=== PATIENT | female | born 1965 ===

== ENCOUNTER 2024-01-23 13:26 | Emergency (ER) | payer OTHER, SELFPAY ==
--- NOTE | ~2024-01-23 | XR_ITS ---
EXAMINATION: XR LEFT KNEE XR RIGHT KNEE CLINICAL INFORMATION: Bilateral knee pain. COMPARISON: None available. TECHNIQUE: AP, lateral and bilateral oblique views of each knee were obtained. FINDINGS: Normal alignment of the left knee. Mild medial tibiofemoral cartilage space loss with marginal osteophytes. There is slight asymmetric prominence of the musculature within the posterior compartment of the left knee. No displaced fracture. No significant joint effusion. Normal alignment of the right knee. Mild medial tibiofemoral cartilage space loss with marginal osteophytes. No displaced fracture. No significant joint effusion. XR/XR knee LT 3V IMPRESSION: Asymmetric prominence of the musculature within the posterior compartment of the left knee. Advise clinical correlation.
--- NOTE | ~2024-01-23 | XR_ITS ---
EXAMINATION: XR LEFT KNEE XR RIGHT KNEE CLINICAL INFORMATION: Bilateral knee pain. COMPARISON: None available. TECHNIQUE: AP, lateral and bilateral oblique views of each knee were obtained. FINDINGS: Normal alignment of the left knee. Mild medial tibiofemoral cartilage space loss with marginal osteophytes. There is slight asymmetric prominence of the musculature within the posterior compartment of the left knee. No displaced fracture. No significant joint effusion. Normal alignment of the right knee. Mild medial tibiofemoral cartilage space loss with marginal osteophytes. No displaced fracture. No significant joint effusion. XR/XR knee RT 3V IMPRESSION: Asymmetric prominence of the musculature within the posterior compartment of the left knee. Advise clinical correlation.
--- NOTE | 2024-01-23 13:55 | ED_ITS ---
HPI - Extremity Injury (Lower) General Chief Complaint: Extremity Injury, Lower Stated Complaint: Body pain Time Seen by Provider: 01/23/24 15:27 Source: patient Mode of arrival: ambulatory Limitations: no limitations History of Present Illness HPI Narrative: 58-year-old female history of arthritis of both knees presents to ED for bilateral knee pain since last night while doing heavy lifting. Patient states he is clicking sounds in both knees. Patient denies any blunt trauma, dizziness, calf pain, leg swelling, chest pain, or shortness of breath. Related Data Previous Rx's ?Medication ?Instructions ?Recorded naproxen 500 mg tablet 500 mg PO BID PRN pain 7 days #14 01/23/24 tabs prednisone 20 mg tablet 40 mg (2 x 20 mg) PO DAILY 5 days 01/23/24 #10 tabs Allergies Allergy/AdvReac Type Severity Reaction Status Date / Time No Known Allergies Allergy Verified 01/23/24 13:58 Review of Systems 2 Review of Systems: Bilateral knee pain Yes all other systems are reviewed and are negative [facility] Social History Social History Advance Directives: No Advance Directives Information Provided: No Physical Exam 2 Vital Signs: Vital Signs: Last Vital Signs Temp 0 F L 01/23/24 17:11 Pulse 0 L 01/23/24 17:11 Resp 16 01/23/24 17:11 BP 00/00 L 01/23/24 17:11 Pulse Ox 99 01/23/24 15:56 O2 Del Method Room Air 01/23/24 15:56 BMI result Body Mass Index 28.2 Const: General: cooperative, healthy appearing, comfortable, no acute distress, well developed, alert, awake and Physically active O rientation/consciousness: oriented to person, oriented to place, oriented to time and patient oriented x3 HEENT: Head: Yes normal to inspection, Yes No palpable skull fracture present, Yes normocephalic and Yes atraumatic Eyes: General: appearance normal, both eyes and all related structures Neck: Neck: Yes normal visual inspection, Yes full ROM, Yes no lymphadenopathy, Yes no meningeal signs, Yes trachea midline, Yes supple, No anterior neck swelling and No tender Chest: Chest palpation & inspection: normal inspection of the chest and normal palpation of entire chest wall Resp: Effort & Inspection: normal respiratory effort and able to speak in complete sentences Auscultation: clear to auscultation bilaterally Cardio: Jugular venous distension: no JVD Heart sounds: S1 normal heart sound present and S2 normal heart sound present GI: Inspection: Yes normal to inspection Palpation (GI): Soft to palpation, not firm, nontender, no guarding and not rigid : General: Yes no CVA tenderness Back/Spine/Pelvis: Back: no CVA tenderness and No back tenderness Skin: General skin exam: no rashes or lesions noted, elasticity normal and turgor normal Neuro: General: oriented to person, oriented to place, oriented to time, patient oriented x3, gait normal, tone normal, moves all extremities, Normal light touch and pain sensation, no meningeal signs, no focal motor deficits, CN's II-XI intact bilaterally and normal sensation to monofilament Extrem: General: Yes normal to inspection and Yes full ROM Upper/lower leg/hip images: 1. positive for tendenress on palpation. negative for redness, stifenss, warmth, coldness, hotness, ecchymosis, or deformities. Rest of exam is normal. motor, neuro, and vascular exam is intact. 2. positive for tendenress on palpation. negative for redness, stifenss, warmth, coldness, hotness, ecchymosis, or deformities. Rest of exam is normal. motor, neuro, and vascular exam is intact. Course Course Course Narrative: This is a Rapid Medical Examination (RME) performed by Keara Hendricks PA-C in triage. Full HPI, ROS, assessment and treatment plan per primary provider in the Main ED. 58 yo female with history of HTN, DM, osteoarthritis presents w06/21 bilateral knee pain for the last 3 days. 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 Unable to sleep due the pain. Took gabapentin with no relief. Recently moved here from [place] so has no orthopedic or provider in the area. Plan: knee x-rays Medical Decision Making Medical Decision Making [facility] Narrative: 58-year-old female presents to ED for bilateral knee pain without any trauma. Patient has history of osteoarthritis. Patient states prednisone usually help with symptoms. X-ray shows osteoarthritis. No fracture. Patient explained worrisome signs informed to return to Differential Diagnosis Differential Diagnoses: The differential diagnosis associated with the presentation includes ( arthritis, fracture, dislocation) Admission/Observation Consideration of admission/observation: Escalation of care including admission/observation considered Lab Data MDM Lab Attestation statement: I reviewed the patient's lab results. Independent Interpretation I performed an independent interpretation of an: Plain X-Ray Radiology Impression Discussion of test interpretation with radiology: I have reviewed the radiologist's reading. Independent Historian Clinical information obtained from an independent historian. History obtained from or confirmed by: Other ( patient) External Record Review External record reviewed: Other ( prior visits) Prescription Management I considered prescription management with: Pain Medication Discharge Plan Discharge Clinical Impression: Osteoarthritis Patient Disposition: Home, Self-Care Instructions: Osteoarthritis (ED) Additional Instructions: recommend follow-up with primary care provider. Return to the ED immediately for swelling, redness, bluish black discoloration, calf pain, stiffness, fever, chills, hotness, coldness, or any other concerning symptoms. FINDINGS: Normal alignment of the left knee. Mild medial tibiofemoral cartilage space loss with marginal osteophytes. There is slight asymmetric prominence of the musculature within the posterior compartment of the left knee. No displaced fracture. No significant joint effusion. Normal alignment of the right knee. Mild medial tibiofemoral cartilage space loss with marginal osteophytes. No displaced fracture. No significant joint effusion. XR/XR knee LT 3V IMPRESSION: Asymmetric prominence of the musculature within the posterior compartment of the left knee. Advise clinical correlation. Prescriptions: New prednisone 20 mg tablet 40 mg PO DAILY 5 Days Qty: 10 0RF naproxen 500 mg tablet 500 mg PO BID PRN (Reason: pain) 7 Days Qty: 14 0RF Stand Alone Forms: Work/School Release Interventions: ED Discharge Assessment Last Done: 01/23/24 17:11 Discharge Date/Time: 01/23/24 17:11 Print Language: Indonesian
[2024-01-23 13:56] VITALS: BP 148/72; PULSE 77; RESP 19; TEMP 36.6; O2SAT 98; BMI 28.2
[2024-01-23 15:56] VITALS: BP 142/70; PULSE 66; RESP 16; TEMP 36.9; O2SAT 99
[2024-01-23 17:11] VITALS: BP 00/00; PULSE 0; RESP 16; TEMP -17.7; TEMP 0
== END 2024-01-23 17:11 | disposition home or self-care (01) ==
PROVIDERS: Emergency Provider Student in an Organized Health Care Education/Training Program; PCP Internal Medicine
DX: M17.0 Bilateral primary osteoarthritis of knee (principal); M25.562 Pain in left knee; M25.561 Pain in right knee
CPT/HCPCS: 73562; 99283

== ENCOUNTER 2024-02-24 02:52 | Emergency (ER) | payer OTHER, SELFPAY ==
--- NOTE | 2024-02-24 | ECG_ITS ---
Test Reason : CHEST PAIN Blood Pressure : / mmHG Vent. Rate : 080 BPM Atrial Rate : 080 BPM P-R Int : 124 ms QRS Dur : 096 ms QT Int : 362 ms P-R-T Axes : 000 -12 137 degrees QTc Int : 417 ms Normal sinus rhythm Lateral infarct , age undetermined Abnormal ECG No previous ECGs available Referred By: Generic ED Physician Electronically Signed By:ELY JOE
--- NOTE | ~2024-02-24 | CT_ITS ---
EXAMINATION: CT ABDOMEN AND PELVIS WITHOUT CONTRAST CLINICAL INFORMATION: Abdominal pain. COMPARISON: None available. TECHNIQUE: Multidetector volumetric imaging was performed from the superior aspect of the liver through the pubic symphysis. Sagittal and coronal reformatted images were obtained on the technologist's workstation. This CT examination was performed using dose optimization techniques as appropriate, variously including the following: *Automated exposure control *Adjustment of mA and/or kV according to patient size (this includes techniques or standardized protocols for targeted exams where dose is matched to indication/reason for exam; i.e. extremities or head) *Use of iterative reconstruction technique DLP: 620 mGy-cm FINDINGS: LUNG BASES: Small hiatal hernia. LIVER, GALLBLADDER, AND BILIARY TREE: The noncontrast liver is normal in size and contour. No biliary ductal dilatation is present. The gallbladder is unremarkable with no evidence of radiopaque gallstones, gallbladder wall thickening, or obvious pericholecystic inflammatory changes. PANCREAS: Unremarkable. SPLEEN: Unremarkable. ADRENAL GLANDS: Unremarkable. KIDNEYS AND URETERS: The kidneys are normal in size, shape, and attenuation. No hydronephrosis or renal calculi. No perinephric stranding. BLADDER: Unremarkable. GASTROINTESTINAL TRACT: Small and large bowel loops are of normal caliber. No small bowel obstruction. Appendix is within normal limits. ABDOMINAL WALL: Small fat-containing left inguinal hernia. Small fat-containing umbilical hernia. LYMPH NODES: No bulky lymphadenopathy. VASCULAR: Normal caliber abdominal aorta. PELVIC VISCERA: Unremarkable. OSSEOUS STRUCTURES: No destructive bone lesions. CT/CT abdomen pelvis wo IV con IMPRESSION: No nephrolithiasis or hydronephrosis.
[2024-02-24 02:55] VITALS: BP 168/77; PULSE 85; RESP 20; TEMP 36.6; O2SAT 98; BMI 28.2
[2024-02-24 03:18] LABS: Basophils Percent Auto 0.4 % (0-2); Eosinophils Absolute Auto 0.1 X10*3/uL (0.0-0.4); Eosinophils Percent Auto 1.9 % (0-4); Hematocrit 39.4 % (37.0-47.0); Hemoglobin 13.4 g/dl (12.0-16.0); Imm Gran Abs Auto 0.01 X10*3/uL (0.00-0.03); Imm Gran Pct Auto 0.2 % (0.0-0.4); Lymphocytes Absolute Auto 1.3 X10*3/uL (1.2-4.9); Lymphocytes Percent Auto 24.9 % (20-40); MANUAL DIFF FLAG NO; Mean Corpuscular Hemoglobin 30.7 pg (27.0-33.0); Mean Corpuscular Volume 90.4 fL (80.0-98.0); Mean Platelet Volume 9.3 fL (9.4-12.3); Monocytes Absolute Auto 0.4 X10*3/uL (0.1-1.2); Monocytes Percent Auto 7.1 % (2-11); Neutrophils Absolute Auto 3.5 x10*3/uL (2.0-8.3); Neutrophils Percent Auto 65.5 % (45-73); Platelet Count 214 X10*3/uL (160-400); Red Blood Count 4.36 X10*6/uL (4.20-5.50); Red Cell Distribution Width 13.8 % (11.0-16.0); White Blood Count 5.4 X10*3/uL (4.8-10.8)
[2024-02-24 03:20] LABS: Appearance Urine Cloudy; Color Urine Orange; Glucose Urine UA Negative (Negative); Leukocyte Esterase Urine Moderate (2+) (Negative); Nitrite Urine Negative (Negative); PH 7.5 (5.0-9.0); UMIC TRIGGER UACC YES; Urine Blood Large (3+) (Negative); Urine Ketones Negative (Negative); Urine Protein 100 (2+) mg/dL (Neg-Trace)
[2024-02-24 03:22] LABS: Bacteria Urine 1+ (None Seen); Hyaline Casts Urine 0-2 /LPF (0-2); RBC Urine >20 /HPF (0-2); Squamous Epithelial Cell Urine 0-2 /HPF (0-2); UACC Culture Trigger YES; WBC Urine >50 /HPF (0-5)
--- NOTE | 2024-02-24 03:44 | PC.NURSE ---
Pt reporting chest pain, 06/21, that began while pt was using the restroom. EKG completed and Trop added to the lab. made aware.
[2024-02-24 03:56] LABS: Anion Gap 12 (12-20); Blood Urea Nitrogen 20 mg/dL (9-16); Calcium 9.3 mg/dL (8.4-10.2); Carbon Dioxide 26 mmol/L (22-29); Chloride 105 mmol/L (96-108); Creatinine Clr Calc Pharmacy 83.1; Estimated Glomerular Filt Rate > 60; Glucose Random 100 mg/dL (60-115); Lipase 36 U/L (8-78); Potassium 4.1 mmol/L (3.3-5.1); Sodium 139 mmol/L (135-145)
[2024-02-24 04:14] LABS: Troponin-I High Sensitivity < 2.7 ng/L (<3.5-17.0)
--- NOTE | 2024-02-24 05:26 | ED.ABDPAIN ---
HPI - Abdominal Pain General Chief Complaint: Abdominal Pain Stated Complaint: Abdominal/Flank pain Time Seen by Provider: 02/24/24 05:17 Source: patient Mode of arrival: ambulatory Limitations: no limitations History of Present Illness ED Provider: Dr. Zandra Whipple HPI narrative: Patient comes to the emergency room complaining of couple of hours of burning with urination, hematuria, dysuria, left flank pain. Patient denies any injuries. Patient denies any previous history of kidney stones. Patient denies nausea vomiting or diarrhea. Related Data Previous Rx's ?Medication ?Instructions ?Recorded naproxen 500 mg tablet 500 mg PO BID PRN pain 7 days #14 01/23/24 tabs prednisone 20 mg tablet 40 mg (2 x 20 mg) PO DAILY 5 days 01/23/24 #10 tabs Allergies Allergy/AdvReac Type Severity Reaction Status Date / Time No Known Allergies Allergy Verified 02/24/24 02:57 Review of Systems Review of Systems Constitutional : No Weight loss, No Fever, No Chills, No Night Sweats, No Fatigue, No Malaise ENT/Mouth : No Hearing loss, No Ear Pain, No Nasal Congestion, No Sinus Pain, No Hoarseness, No sore throat, No Rhinorrhea, No Swallowing Difficulty Eyes: No Eye Pain, No Swelling, No Redness, No Foreign Body, No Discharge, No Vision Changes Cardiovascular : No Chest Pain, No SOB, No Dyspnea on Exertion, No Orthopnea, No Edema, No Palpitations Respiratory : No Cough, No Sputum, No Wheezing, No Smoke Exposure, No Dyspnea Gastrointestinal : No Nausea, No Vomiting, No Diarrhea, No Constipation, No abdominal Pain, No Hematochezia, No Melena Genitourinary : no irregular bleeding, patient complaining of dysuria frequency and hematuria, No Urinary Incontinence, No Urgency, patient complaining of left-sided Flank Pain, No Urinary Flow Changes, No Hesitancy Musculoskeletal : No joint pain, No Myalgias, No Joint Swelling Skin : No Skin Lesions, No rash Neuro : No Weakness, No Numbness, No Paresthesias, No Loss of Consciousness, No Dizziness, No Headache Psych : No Anxiety/Panic, No Depression, No SI/HI/AH/VH, No Social Issues, Heme/Lymph: No Bruising, No Bleeding,No Lymphadenopathy Endocrine : No Polyuria, No Polydipsia, No Temperature Intolerance PMFSH Social History Social History Smoked in Last 30 Days: No Use of substances other than those prescribed or required for medical reasons: No Advance Directives: No Advance Directives Information Provided: Yes Patient : No Physical Exam ED Vital Signs: Vital Signs - 24 hr 02/24/24 02:55 02/24/24 06:44 Temperature 97.8 F 98.7 F Pulse Rate 85 74 Respiratory Rate 20 18 Blood Pressure 168/77 H 125/74 Pulse Oximetry 98 97 Oxygen Delivery Method Room Air Room Air BMI result Body Mass Index 28.2 Const Other: Appearance: Alert. Oriented X3. No acute distress. Eyes: Pupils equal, round and reactive to light. ENT: Pharynx normal. Neck: Normal inspection. Neck supple. No lymph nodes noted. No crepitus CVS: Normal heart rate and rhythm. Pulses normal. Normal S1 and S2 Respiratory: No respiratory distress. Breath sounds normal. No Wheezing. No rales Abdomen: Soft and nontender. No rigidity. No distention. No CVA tenderness, mild left lower quadrant pain Skin: Skin warm and dry. Normal skin color. Normal skin turgor. Extremities: No lower extremity edema. No Lacerations. No Rash Neuro: Oriented X 3. No motor deficit. No sensory deficit. Moving all extremities. No slurred speech. CN 2 through 12 grossly intact Psych: calm, cooperative, normal affect Course Course Course Narrative: -patient receiving IV ketorolac and p.o. levofloxacin Medical Decision Making Medical Decision Making MDM Narrative: -my interpretation of labs: Patient's white blood cell count and chemistry within normal limits. Patient does have a significant UTI. -discussed with the patient that this may be a UTI, critically pyelonephritis, versus ureterolithiasis. -patient has no fever, no episodes of hypotension, normal white blood cell count, sepsis not suspected. -patient was given ketorolac for the discomfort along with the 1st dose of antibiotics, levofloxacin CT scan pending, sign-out given to my colleague Dr. Pearce Lab Data 02/24/24 03:13 02/24/24 03:13 Labs: Lab Results 02/24/24 Range/Units 03:13 WBC 5.4 (4.8-10.8) X10*3/uL RBC 4.36 (4.20-5.50) X10*6/uL Hgb 13.4 (12.0-16.0) g/dl Hct 39.4 (37.0-47.0) % MCV 90.4 (80.0-98.0) fL MCH 30.7 (27.0-33.0) pg MCHC 34.0 (31.0-35.0) g/dl RDW 13.8 (11.0-16.0) % Plt Count 214 (160-400) X10*3/uL MPV 9.3 L (9.4-12.3) fL Immature Gran % (Auto) 0.2 (0.0-0.4) % Neut % (Auto) 65.5 (45-73) % Lymph % (Auto) 24.9 (20-40) % [place] % (Auto) 7.1 (2-11) % Eos % (Auto) 1.9 (0-4) % Baso % (Auto) 0.4 (0-2) % Lymph # (Auto) 1.3 (1.2-4.9) X10*3/uL [place] # (Auto) 0.4 (0.1-1.2) X10*3/uL Eos # (Auto) 0.1 (0.0-0.4) X10*3/uL Baso # (Auto) 0.0 (0.0-0.2) X10*3/uL Abs Immat Gran (auto) 0.01 (0.00-0.03) X10*3/uL Absolute Neuts (auto) 3.5 (2.0-8.3) x10*3/uL Absolute Nucleated RBC 0.000 (0.0-0.012) X10*3/uL Nucleated RBC % (auto) 0.0 (0.0-0.2) /100WBC Sodium 139 (135-145) mmol/L Potassium 4.1 (3.3-5.1) mmol/L Chloride 105 (96-108) mmol/L Carbon Dioxide 26 (22-29) mmol/L Anion Gap 12 (12-20) BUN 20 H (9-16) mg/dL Creatinine 0.83 (0.5-1.4) mg/dL Estim Creat Clear Calc 83.1 Estimated GFR > 60 Random Glucose 100 (60-115) mg/dL Calcium 9.3 (8.4-10.2) mg/dL Troponin I High Sens < 2.7 (<3.5-17.0) ng/L Lipase 36 (8-78) U/L Urine Color [place] A Urine Appearance Cloudy Urine pH 7.5 (5.0-9.0) Ur Specific [place] 1.020 (1.005-1.025) Urine Protein 100 (2+) H (Neg-Trace) mg/dL Urine Glucose (UA) Negative (Negative) mg/dL Urine Ketones Negative (Negative) mg/dL Urine Blood Large (3+) H (Negative) Urine Nitrite Negative (Negative) Ur Leukocyte Esterase Moderate (2+) H (Negative) Urine RBC >20 H (0-2) /HPF Urine WBC >50 H (0-5) /HPF Ur Squamous Epith Cells 0-2 (0-2) /HPF Urine Bacteria 1+ (None Seen) Hyaline Casts 0-2 (0-2) /LPF Medications Administered Discontinued Medications Generic Name Dose Route Start Last Admin Trade Name Freq PRN Reason Stop Dose Admin Ketorolac Tromethamine 30 mg 02/24/24 05:23 02/24/24 06:01 Ketorolac Tromethamine 30 Mg/Ml Vial IVPUSH 02/24/24 05:24 30 mg ONCE ONE Administration Levofloxacin 500 mg 02/24/24 05:24 02/24/24 06:02 Levofloxacin 500 Mg Tablet PO 02/24/24 05:25 500 mg ONCE ONE Administration Critical Care Time Critical Care Time Critical Care Time: Yes Total Critical Care Time: 45 Attestation: I have personally provided critical care time. Time includes review of lab data, radiology results, discussion with consultants, and monitoring for potential decompensation. Intervention performed as documented. Discharge Plan Discharge Clinical Impression: Pyelonephritis Patient Disposition: Still a Patient Prescriptions: No Action prednisone 20 mg tablet 40 mg PO DAILY 5 Days Qty: 10 0RF naproxen 500 mg tablet 500 mg PO BID PRN (Reason: pain) 7 Days Qty: 14 0RF Print Language: Hebrew
[2024-02-24] MEDS: Ketorolac Tromethamine 30 MG/ML VIAL IVPUSH (06:01)
[2024-02-24] MEDS: levoFLOXacin 500 MG TABLET PO (06:02)
[2024-02-24 06:44] VITALS: BP 125/74; PULSE 74; RESP 18; TEMP 37.1; O2SAT 97
[2024-02-24 08:21] VITALS: BP 108/56; PULSE 76; RESP 16; O2SAT 95
[2024-02-24 08:50] VITALS: BP 108/56; PULSE 76; RESP 16; TEMP 37.1; O2SAT 95
== END 2024-02-24 08:50 | disposition home or self-care (01) ==
PROVIDERS: Emergency Medicine; Emergency Provider Emergency Medicine
DX: R30.0 Dysuria (principal); R31.9 Hematuria, unspecified; R10.2 Pelvic and perineal pain; R07.89 Other chest pain; R94.31 Abnormal electrocardiogram [ECG] [EKG]; Z79.899 Other long term (current) drug therapy
CPT/HCPCS: 36415; 74176; 80048; 81001; 83690; 84484; 85025; 87086; 87088; 87186; 93005; 96374; 99284; 99285; J1885

== ENCOUNTER → 2024-02-24 03:32 | Outpatient (BNV) | payer OTHER, SELFPAY | PROVIDERS: Emergency Provider Emergency Medicine; Visit Provider Internal Medicine | DX: R94.31 Abnormal electrocardiogram [ECG] [EKG] (principal) | CPT/HCPCS: 93010 ==